=== PATIENT | male | born 1965 | race Caucasian/White ===

== ENCOUNTER 2016-07-14 09:48 | Emergency (ER) | payer OTHER ==
--- NOTE | 2016-07-14 09:51 | UCPHY ---
H & P Patient Type: New HPI/ROS: HPI CHIEF COMPLAINT: Rash HISTORY OF PRESENT ILLNESS: This patient very pleasant 51-year-old male, denies any significant medical or surgical history presents to the urgent care by private vehicle with a rash progressively getting worse over the past 2-3 days. Patient states he was recently sick with a viral illness however this resolved and he felt better and went back to the gym. He does swim at the gym in goes and pulls in hot times shortly after going the pull on hot tub he developed a rash under his bilateral armpits left worse than right as well as rash between his scrotum and thigh wall on both sides. He denies it really itching. It is red, there is no weeping or crusting. And then he has some very fine macular papular red raised lesions diffusely sparsely across his chest abdomen back and extremities. He has no mucosal lesions. He has not had any fever. He has no skin peeling. He has no meningeal signs. There is no petechia or purpura. I explained the patient most likely this could be a hot tub folliculitis vs pool infection. Is also possible is a fungal infection. I will place him on Keflex, Bactrim, Diflucan. Upon arrival here to the urgent care he appears well nontoxic in no acute distress. States the rash was initially in his genital region, however then spread to his axilla. Past Medical History: Significant medical history Past Surgical History: Denies significant surgical history Social History: Denies daily use of drugs alcohol tobacco products Family History: Noncontributory ROS REVIEW OF SYSTEMS: A comprehensive 10 point review of systems is otherwise negative aside from elements mentioned in the history of present illness. Exam Constitutional appears well nontoxic in no acute distress, triage nursing summary reviewed, vital signs reviewed, awake/alert. Eyes normal conjunctivae and sclera, EOMI, PERRLA. HENT normal inspection, atraumatic, moist mucus membranes, no epistaxis, neck supple/ no meningismus, no raccoon eyes. Respiratory clear to auscultation bilaterally, normal breath sounds, no respiratory distress, no wheezing. Cardiovascular rate normal, regular rhythm, no murmur, no edema, distal pulses normal. Gastrointestinal soft, non-tender, no rebound, no guarding, normal bowel sounds, no distension, no pulsatile mass. Genitourinary no CVA tenderness. Musculoskeletal no midline vertebral tenderness, full range of motion, no calf swelling, no tenderness of extremities, no meningismus, good pulses, neurovascularly intact. Skin under both axilla left worse than right there is redness around the hair follicles, there is no blistering, no significant induration this appears to be a folliculitis, there is no significant weeping. Between his scrotum and thigh while both sides there is redness there is no paleness or whiteness surrounding it concerning for fungal infection this appears to be more like a folliculitis. And then diffusely sparsely integrated throughout his skin there is a fine maculopapular rash there is no particular purpura these appear to be at the base of hair follicles again consistent with folliculitis. No mucosal lesions. Neurologic awake, alert and oriented x 3, AAOx3, moves all 4 extremities equally, motor intact, sensory intact, CN II-XII intact, normal cerebellar, normal vision, normal speech. Psychiatric normal mood/affect. Heme/Lymph/Immune no lymphadenopathy. Differential Diagnosis: Includes but is not limited to in a particular order folliculitis, staph infection, strep infection, fungal infection, hot tub folliculitis, pool folliculitis, Contact dermatitis, allergic reaction Medical Decision Making: This patient appears well here nontoxic in no acute distress, most likely has a folliculitis. Patient be placed on Keflex, Bactrim and Diflucan. He understands to follow up with his primary care doctor the next 48-72 hours however if he has any worsening symptoms includes fever, worsening of rash, skin blistering, skin sloughing, nausea vomiting or diarrhea he should return to the emergency room urgent care. Take antibiotics as prescribed take them with food not on an empty stomach. He understands. Refrain from going to the gym at this time refrain from going into poor hot tubs. Do not place any substance on his wounds. He understands this. Source: Patient - Family History Significant Family History: No pertinent family hx Constitutional: Initial Vital Signs Temperature (C) 36.6 C 07/14/16 10:04 Heart Rate 70 07/14/16 10:04 Respiratory Rate 18 07/14/16 10:04 Blood Pressure 143/96 H 07/14/16 10:04 O2 Sat (%) 93 07/14/16 10:04 O2 Delivery Mode Room Air Allergies/Adverse Reactions: Penicillins Allergy (Verified 07/14/16 10:04) Home Medications: Medication Instructions Recorded Cephalexin [Keflex] 500 mg PO Q6H #28 cap 07/14/16 Fluconazole [Diflucan] 200 mg PO BID #6 tablet 07/14/16 Sulfamethox/Tmp 800/160 mg 1 tab PO BID@1000,2200 #14 tab 07/14/16 [Bactrim Ds] Departure - Departure Disposition: Home, Routine, Self-Care Clinical Impression: Folliculitis Condition: Good Instructions: Skin Yeast Infection (ED), Folliculitis (ED) Additional Instructions: 1.Drink lots of fluids 2. take her antibiotics as prescribed with food not empty stomach 3. Refrain from going to the gym at this time refrain from going into poor hot tubs. Do not place any substance on your wounds. 4. please follow up with her primary care doctor next 48-72 hours however if your worse return to the urgent care or emergency room. Referrals: Cheryle Serra MD [Primary Care Provider] - As per Instructions Prescriptions: Cephalexin [Keflex] 500 mg PO Q6H #28 cap Fluconazole [Diflucan] 200 mg PO BID #6 tablet Sulfamethox/Tmp 800/160 mg [Bactrim Ds] 1 tab PO BID@1000,2200 #14 tab - PQRS PQRS Measurement: n/a
[2016-07-14 10:09] VITALS: BP 143/96; PULSE 70; RESP 18; TEMP 98; O2SAT 93
== END 2016-07-14 10:25 | disposition home or self-care (01) ==
LOC: CED 09:48
DX: L73.9 Follicular disorder, unspecified (principal)
CPT/HCPCS: 99204-PO; G0463-PO

== ENCOUNTER 2017-10-03 10:05 | Observation (INO) | payer OTHER ==
[2017-10-03] MEDS ORDERED: NS 1,000 ML IV ONE (10:10)
[2017-10-03] MEDS ORDERED: METOCLOPRAMIDE 10 MG/2 ML VIAL IVP ONE (10:10)
--- NOTE | 2017-10-03 10:12 | EDPHY ---
H & P Time Seen by Provider: 10/03/17 10:06 HPI/ROS: CHIEF COMPLAINT: Epigastric pain HISTORY OF PRESENT ILLNESS: Patient is a 52-year-old man who comes to the emergency department stating that he felt nauseous all night but has not vomited. No diarrhea. No fever. He complains of epigastric pain that has presented to 3 times in the last few months particularly when he drinks alcohol. He does not drink alcohol very often. He did drink yesterday. He states that he is concerned because his mom has pancreatic cancer. He personally has never had any pancreatic abnormalities. He was given fentanyl and Zofran by EMS. REVIEW OF SYSTEMS: Constitutional: denies: chills, fever, recent illness, recent injury EENTM: denies: blurred vision, double vision, nose congestion Respiratory: denies: cough, shortness of breath Cardiac: denies: chest pain, irregular heart rate, lightheadedness, palpitations Gastrointestinal/Abdominal: See HPI Genitourinary: denies: dysuria, frequency, hematuria, pain Musculoskeletal: denies: joint pain, muscle pain Skin: denies: lesions, rash, jaundice, bruising Neurological: denies: headache, numbness, paresthesia, tingling, dizziness, weakness Hematologic/Lymphatic: denies: blood clots, easy bleeding, easy bruising Immunologic/allergic: denies: HIV/AIDS, transplant EXAM: GENERAL: Well-appearing, well-nourished and in no acute distress. HEAD: Atraumatic, normocephalic. EYES: Pupils equal round and reactive to light, extraocular movements intact, sclera anicteric, conjunctiva are normal. ENT: TMs normal, nares patent, oropharynx clear without exudates. Moist mucous membranes. NECK: Normal range of motion, supple without lymphadenopathy or JVD. LUNGS: Breath sounds clear to auscultation bilaterally and equal. No wheezes rales or rhonchi. HEART: Regular rate and rhythm without murmurs, rubs or gallops. ABDOMEN: Primary complains of epigastric pain but has mild right lower quadrant tenderness. No rebound or guarding. BACK: No CVA tenderness, no spinal tenderness, step-offs or deformities EXTREMITIES: Normal range of motion, no pitting or edema. No clubbing or cyanosis. NEUROLOGICAL: Cranial nerves II through XII grossly intact. Normal speech, normal gait. 5/5 strength, normal movement in all extremities, normal sensation PSYCH: Normal mood, normal affect. SKIN: Warm, dry, normal turgor, no visible rashes or lesions. Source: Patient Exam Limitations: No limitations - Medical/Surgical History Hx Asthma: No Hx Chronic Respiratory Disease: No Hx Diabetes: No Hx Cardiac Disease: No Hx Renal Disease: No Hx Cirrhosis: No Hx Alcoholism: No Other PMH: ortho - Family History Significant Family History: No pertinent family hx - Social History Smoking Status: Never smoked Alcohol Use: None Constitutional: Initial Vital Signs Temperature (C) 36.4 C 10/03/17 10:08 Heart Rate 57 L 10/03/17 10:08 Respiratory Rate 18 10/03/17 10:08 Blood Pressure 145/83 H 10/03/17 10:08 O2 Sat (%) 100 10/03/17 10:08 O2 Delivery Mode Room Air Allergies/Adverse Reactions: bee venom protein (honey bee) Allergy (Verified 10/03/17 15:23) Penicillins Allergy (Verified 10/03/17 15:23) Swelling/neck,face,throat Home Medications: Medication Instructions Recorded Ibuprofen [Motrin (*)] 200 - 400 mg PO DAILY PRN 10/03/17 Medical Decision Making - Diagnostics EKG Interpretation: An EKG obtained and was read and documented in trace view. Please see trace view for full reading and report. Sinus bradycardia, no acute ischemic changes Imaging: Discussed imaging studies w/ mat machine operator Radiologist ED Course/Re-evaluation: 11:20 a.m. We discussed the CT results. I have paged surgery. Will start antibiotics. He has a remote mild penicillin allergy. 11:[address] Moseley is here to evaluate the patient. Differential Diagnosis: Partial list of the Differential diagnosis considered include but were not limited to; appendicitis, gastritis, peptic ulcer disease and although unlikely based on the history and physical exam, I also considered obstruction, perforation, ischemia, volvulus. - Data Points Laboratory Results: Laboratory Results 10/03/17 10:00 10/03/17 10:00 Medications Given: Metronidazole/Sodium Chloride (Flagyl 250 Mg (Premix)) 50 mls @ 50 mls/hr IV Q8HRS OLIVIER PRN Reason: Protocol Stop: 10/04/17 21:59 Last Admin: 10/04/17 05:22 Dose: 50 mls Ketorolac Tromethamine (Toradol) 15 mg IVP Q6HRS OLIVIER Stop: 10/09/17 00:00 Last Admin: 10/04/17 05:22 Dose: 15 mg Discontinued Medications Acetaminophen (Tylenol) 500 mg PO Q6HRS PRN PRN Reason: PACU, Pain Mild Stop: 10/03/17 20:01 Last Admin: 10/03/17 19:27 Dose: 500 mg Bupivacaine HCl (Sensorcaine 0.5% Vial) Confirm Administered Dose 30 ml .ROUTE .STK-MED ONE Stop: 10/03/17 15:22 Last Admin: 10/03/17 15:21 Dose: 20 ml Cefazolin Sodium (Ancef) Confirm Administered Dose 1 gm .ROUTE .STK-MED ONE Stop: 10/03/17 15:22 Last Admin: 10/03/17 15:21 Dose: Not Given Cefazolin Sodium (Ancef Syringe) Confirm Administered Dose 1 gm .ROUTE .STK-MED ONE Stop: 10/03/17 15:26 Last Admin: 10/03/17 15:25 Dose: Not Given Heparin Sodium (Porcine) (Heparin Sodium) Confirm Administered Dose 1,000 unit .ROUTE .STK-MED ONE Stop: 10/03/17 15:22 Last Admin: 10/03/17 19:05 Dose: Not Given Hydromorphone HCl (Dilaudid) 1 mg IVP EDNOW ONE Stop: 10/03/17 11:38 Last Admin: 10/03/17 11:42 Dose: 1 mg Sodium Chloride (Ns) 1,000 mls @ 0 mls/hr IV EDNOW ONE; Wide Open PRN Reason: Protocol Stop: 10/03/17 10:11 Last Admin: 10/03/17 10:18 Dose: 1,000 mls Ceftriaxone Sodium/Dextrose (Rocephin 1 Gm (Premix)) 50 mls @ 100 mls/hr IV EDNOW ONE PRN Reason: Protocol Stop: 10/03/17 11:49 Last Admin: 10/03/17 11:50 Dose: 50 mls Metronidazole/Sodium Chloride (Flagyl 500 Mg (Premix)) 100 mls @ 100 mls/hr IV EDNOW ONE PRN Reason: Protocol Stop: 10/03/17 12:22 Last Admin: 10/03/17 12:33 Dose: 100 mls Lactated Ringer's (Lr) 1,000 mls @ 125 mls/hr IV ONCE ONE Stop: 10/03/17 21:05 Last Admin: 10/03/17 15:20 Dose: 1,000 mls Ketorolac Tromethamine (Toradol) 15 mg IVP EDNOW ONE Stop: 10/03/17 10:33 Last Admin: 10/03/17 11:23 Dose: 15 mg Ketorolac Tromethamine (Toradol) 30 mg IVP ONCE ONE Stop: 10/03/17 19:20 Last Admin: 10/03/17 20:23 Dose: Not Given Metoclopramide HCl (Reglan Injection) 10 mg IVP EDNOW ONE Stop: 10/03/17 10:11 Last Admin: 10/03/17 10:18 Dose: 10 mg Midazolam HCl (Versed) 2 mg IVP ONCE ONE Stop: 10/03/17 17:00 Last Admin: 10/03/17 17:49 Dose: 2 mg Departure - Departure Disposition: [facility] Clinical Impression: Acute appendicitis Qualifiers: Acute appendicitis type: with localized peritonitis Qualified Code(s): K35.3 - Acute appendicitis with localized peritonitis Condition: Fair
[2017-10-03 10:22] LABS: PLATELET COUNT 286 10^3/uL (150-400)
[2017-10-03] MEDS ORDERED: KETOROLAC 30 MG/1 ML SDV IVP ONE ×2 (10:32→19:19)
--- NOTE | 2017-10-03 10:32 | CPEKG ---
Heart Rate: 48 RR Interval: 1250 P-R Interval: 148 QRSD Interval: 88 QT Interval: 452 QTC Interval: 404 P Tyler: 73 QRS Tyler: 59 T Wave Tyler: -7 EKG Severity - BORDERLINE ECG - EKG Impression: SINUS BRADYCARDIA EKG Impression: BORDERLINE T ABNORMALITIES, ANTERIOR LEADS Electronically Signed By: Wilson Juarez 03-Oct-2017 10:33:25
[2017-10-03] MEDS ORDERED: IOPAMIDOL (ISOVUE-300) 100 ML BTL ONE (10:53)
[2017-10-03] MEDS ORDERED: KETOROLAC 15 MG/1 ML SDV ONE (11:22)
[2017-10-03] MEDS ORDERED: HYDROmorphONE/DILAUDID 2 MG/ML INJ IVP ONE (11:37)
--- NOTE | 2017-10-03 12:08 | PDGENHP ---
History & Physical Chief Complaint: RLQ PAIN History of Present Illness: 52-YEAR-OLD MALE WITH PAIN SINCE 3:00 A.M. LOCALIZING IN THE RIGHT LOWER QUADRANT. HE HAS HAD SOME EMESIS AND NAUSEA NO DIARRHEA AND NO FEVER [place] [address] SCAN REVEALS MULTIPLE APPENDICOLITHS AND EDEMA IN INFLAMMATION THE APPENDIX. HE HAS HAD NO PREVIOUS ABDOMINAL SURGERIES AND NO HERNIAS Pertinent Past, Social, Family History: PAST HISTORY INCLUDES NO MAJOR MEDICAL PROBLEMS. HE HAS HAD A KNEE SCOPE. MEDICATIONS NONE. ALLERGIES NONE. FAMILY HISTORY NONCONTRIBUTORY. REVIEW OF SYSTEMS NEGATIVE ON A FULL 10 POINT REVIEW OF SYSTEMS AND SPECIFICALLY DOES NOT SMOKE OR HAVE CORONARY SYMPTOMS Relevant Physical Exam: GENERAL HEALTHY 52-YEAR-OLD MALE IN NO ACUTE DISTRESS, AFEBRILE. HEENT NONICTERIC WITHOUT ADENOPATHY, PERRLA. NECK SUPPLE NONTENDER. CHEST CLEAR AND SYMMETRIC. COR REGULAR RHYTHM WITHOUT MURMURS. ABDOMEN SOFT WITHOUT MASSES ORGANOMEGALY HAS RIGHT LOWER QUADRANT TENDERNESS WITH SOME GUARDING THERE ARE NO APPRECIABLE HERNIAS. GENITALIA NORMAL. EXTREMITIES FULL RANGE OF MOTION FULL PULSES. NEUROLOGIC PHYSIOLOGIC. PSYCH ALERT ORIENTED AND COOPERATIVE Cardiorespiratory Assessment: IMPRESSION: ACUTE APPENDICITIS. PLAN LAP APPY/ RISKS AND OPTIONS BEEN FULLY DISCUSSED AND HE WISHES TO PROCEED
[2017-10-03] MEDS ORDERED: LR 1,000 ML IV ONE (13:06)
[2017-10-03] MEDS ORDERED: ceFAZolin 1 GM VIAL ONE (15:21)
[2017-10-03] MEDS ORDERED: HEPARIN 1000 UNIT/1 ML MDV ONE (15:21)
[2017-10-03] MEDS ORDERED: BUPIVACAINE 0.5% 30 ML SDV ONE (15:21)
[2017-10-03] MEDS ORDERED: ceFAZolin 1 GM/5 ML SYR ONE (15:25)
[2017-10-03] MEDS ORDERED: MIDAZOLAM 2 MG/2 ML VIAL IVP ONE (16:59)
--- NOTE | 2017-10-03 16:59 | PDANEPAE ---
ANE History of Present Illness lap appy ANE Past Medical History - Cardiovascular History Hx Hypertension: No Hx Arrhythmias: No Hx Chest Pain: No Hx Coronary Artery / Peripheral Vascular Disease: No Hx CHF / Valvular Disease: No Hx Palpitations: No - Pulmonary History Hx COPD: No Hx Asthma/Reactive Airway Disease: No Hx Recent Upper Respiratory Infection: No Hx Oxygen in Use at Home: No Hx Sleep Apnea: No - Neurologic History Hx Cerebrovascular Accident: No Hx Seizures: No Hx Dementia: No - Endocrine History Hx Diabetes: No Hypothyroid: No Hyperthyroid: No Obesity: no, mild - Renal History Hx Renal Disorders: No - Liver History Hx Hepatic Disorders: No - Neurological & Psychiatric Hx Hx Neurological and Psychiatric Disorders: No - Cancer History Hx Cancer: No - Congenital Disorder History Hx Congenital Disorders: No - GI History Hx Gastrointestinal Disorders: Yes Gastrointestinal History Comment: current appendicitis - Chronic Pain History Chronic Pain: No - Surgical History Prior Surgeries: bilat knee arthropscopy w/removal torn meniscus. left 1990 & right 1985. lilpoma removed from neck early 2016 ANE Review of Systems Review of systems is: negative Review of Systems: - Exercise capacity Exercise capacity: >=4 METS METS (RN): 5 METS ANE Patient History - Allergies Allergies/Adverse Reactions: bee venom protein (honey bee) Allergy (Verified 10/03/17 15:23) Penicillins Allergy (Verified 10/03/17 15:23) Swelling/neck,face,throat - Home Medications Home Medications: Ibuprofen [Motrin (*)] 200 - 400 mg PO DAILY PRN 10/03/17 [Last Taken 10/03/17 06:00] - NPO status NPO Status: no food or drink >8 hours NPO Since - Liquids (Date): 10/03/17 NPO Since - Liquids (Time): 08:30 NPO Since - Solids (Date): 10/02/17 NPO Since - Solids (Time): 22:00 - Anes Hx Anes Hx: no prior problems - Smoking Hx Smoking Status: Never smoked - Alcohol Use Alcohol Use: None ANE Labs/Vital Signs - Labs Result Diagrams: 10/03/17 10:00 10/03/17 10:00 - Vital Signs Vital Signs: reviewed preoperatively; see RN documention for details Blood Pressure: 168/82 Heart Rate: 77 Respiratory Rate: 16 O2 Sat (%): 98 Height: 177.8 cm Weight: 86.183 kg ANE Physical Exam - Airway Neck exam: FROM Mallampati Score: Class 2 Mouth exam: normal dental/mouth exam - Pulmonary Pulmonary: no respiratory distress - Cardiovascular Cardiovascular: regular rate and rhythym - ASA Status ASA Status: II ANE Anesthesia Plan Anesthesia Plan: general endotracheal anesthesia
[2017-10-03] MEDS ORDERED: ONDANSETRON 4 MG/2 ML VIAL ONE (17:29)
[2017-10-03] MEDS ORDERED: LIDOCAINE 2% 5 ML SDV ONE (17:29)
[2017-10-03] MEDS ORDERED: DEXAMETHASONE 4 MG/ML VIAL ONE (17:29)
[2017-10-03] MEDS ORDERED: fentaNYL 100 MCG/2 ML INJ ONE ×3 (17:29→18:31)
[2017-10-03] MEDS ORDERED: KETOROLAC 30 MG/1 ML SDV ONE (17:29)
[2017-10-03] MEDS ORDERED: PROPOFOL 200 MG/20 ML VIAL ONE (17:29)
[2017-10-03] MEDS ORDERED: ROCURONIUM 50 MG/5 ML VIAL ONE ×2 (17:29→18:30)
[2017-10-03] MEDS ORDERED: SUGAMMADEX SODIUM 200 MG/2 ML VIAL IVP ONE (18:40)
[2017-10-03] MEDS ORDERED: NALOXONE HCL 0.4 MG/ML INJ IVP PRN (19:00)
[2017-10-03] MEDS ORDERED: HYDROCODONE/APAP 5/325 TAB PO PRN (19:00)
[2017-10-03] MEDS ORDERED: HYDROmorphONE/DILAUDID 2 MG/ML INJ IVP PRN (19:00)
[2017-10-03] MEDS ORDERED: MEPERIDINE 25 MG/0.5 ML AMP IVP PRN (19:00)
[2017-10-03] MEDS ORDERED: ALBUTEROL 3 ML DEYVIAL IH PRN (19:00)
[2017-10-03] MEDS ORDERED: PROMETHAZINE HCL 25 MG/ML INJ IVP PRN (19:00)
[2017-10-03] MEDS ORDERED: ACETAMINOPHEN 500 MG TAB PO PRN (19:00)
[2017-10-03] MEDS ORDERED: ONDANSETRON 4 MG/2 ML VIAL IVP PRN ×2 (19:00→19:17)
[2017-10-03] MEDS ORDERED: fentaNYL 100 MCG/2 ML INJ IVP PRN (19:00)
[2017-10-03] MEDS ORDERED: oxyCODONE IR 5 MG TAB PO PRN (19:00)
--- NOTE | 2017-10-03 19:00 | POSTANESTH ---
Post Anesthetic Evaluation Cardiovascular Status: Normal, Stable Respiratory Status: Normal, Stable Level of Consciousness/Mental Status: Can Participate in Eval Pain Control: Adequate, Prn Tx Ordered Nausea/Vomiting Control: Adequate, Prn Tx Ordered Complications Possibly Related to Anesthesia: None Noted
--- NOTE | 2017-10-03 19:12 | POSTOPPROG ---
Post Op Note Date of Operation: 10/03/17 Surgeon: Jeff Moseley Anesthesiologist: [email or web address] Anesthesia: GET(General Endotracheal) Pre-op Diagnosis: acute appe Post-op Diagnosis: same Indication: pain Procedure: lap appe Findings: necrotic appendix without rupture Inf/Abcess present in the surg proc area at time of surgery?: Yes Depth: Organ Space EBL: Minimal Complications: 0 Specimen(s): appendix
[2017-10-03] MEDS ORDERED: HYDROmorphone HCL/NS 0.5 MG/ML SYR IVP PRN (19:17)
[2017-10-03] MEDS ORDERED: OXYCODONE/APAP 5/325 TAB PO PRN (19:17)
[2017-10-03] MEDS ORDERED: ACETAMINOPHEN 500 MG TAB ONE (19:26)
[2017-10-03] MEDS ORDERED: D5W 1/2 NS W/ 20 KCl/L 1,000 ML IV SCH (19:30)
[2017-10-03] MEDS: KETOROLAC 15 MG/1 ML SDV IVP SCH (23:22)
[2017-10-04] MEDS: KETOROLAC 15 MG/1 ML SDV IVP SCH (05:22)
[2017-10-04 07:10] VITALS: BP 133/78
--- NOTE | 2017-10-04 08:57 | SOAPPROG ---
SOAP Progress Note Assessment/Plan: Assessment: 52 y/o M s/p lap appy POD #1 S: Doing great. Pain well controlled on toradol alone. Tolerating a regular diet. Eager to go home. O: Alert Afebrile RRR No increase WOB Abdomen: soft, mildly tender to palpation, incisions with steri strips cdi. normoactive bowel sounds Plan: Discharge home today. Rx for percocet for pain. Follow up in our office in 2 weeks. 10/04/17 08:55 Objective: Vital Signs Temp Pulse Resp BP Pulse Ox 37.1 C 77 16 133/78 H 96 10/04/17 07:08 10/04/17 07:08 10/04/17 07:08 10/04/17 07:08 10/04/17 07:08 10/03/17 10/04/17 10/05/17 05:59 05:59 05:59 Intake Total 4650 Output Total 1355 700 Balance 3295 -700 ICD10 Worksheet Patient Problems: Problems Problem Status Onset Acute appendicitis Acute
--- NOTE | 2017-10-08 13:38 | GOP ---
[f rep st] OPERATIVE REPORT DATE OF OPERATION: 10/03/2017 SURGEON: Jeff Moseley MD [employer] DRIVER: None. ANESTHESIOLOGIST: Dr. Willard. PREOPERATIVE DIAGNOSIS: Acute appendicitis. POSTOPERATIVE DIAGNOSIS: Acute appendicitis. PROCEDURE PERFORMED: Laparoscopic appendectomy. FINDINGS: Necrotic appendix, without rupture. ESTIMATED BLOOD LOSS: Negligible. DESCRIPTION OF PROCEDURE: The patient was taken to the operating room where he received satisfactory general endotracheal anesthesia by Dr. Willard. Placed in the supine position and prepped and drap ed in the usual sterile fashion. A periumbilical incision was made. A Veress needle was inserted and pneumoperitoneum established. T rocar was introduced. Good visualization was obtained. Two other trocars were placed in the lower abdomen under direct vision. The appendix was elevated up . The mesoappendix was divided with the Harmonic scalpel. The appendix was completely necrotic, but not perforated. It was dissected back to the base of the cecum where it was divided with the Endo-G IA stapler, placed in a specimen bag and extracted through the upper midline port site. Hemostasis was assured. The wound was irrigated. Trocars were removed under direct vision. Trocar sites were closed with 0 Vicryl for the fascia, 4-0 Monocryl subcuticular stitch for the skin. All l childress infiltrated with 0.5% Marcaine. COMPLICATIONS: None. /[id number]/MODL
== END 2017-10-04 10:19 | disposition home or self-care (01) ==
LOC: EDUNIT# → F3E 19:50
PROVIDERS: ADMIT Surgery; ATTEND Surgery
PROC: 0DTJ4ZZ Resection of Appendix, Percutaneous Endoscopic Approach (ICD-10-PCS; principal; 2017-10-03 15:45)
DX: K35.89 Other acute appendicitis (principal)
CPT/HCPCS: 44970; 74177; 93005; 96361; 96365; 96367; 96375; 96376; 99285; G0378; J0690; J0696; J1100; J1170; J1885; J2250; J2405; J2704; J2765; J3010; Q9967